=== PATIENT | male | born 1960 | race Two or more races ===

== ENCOUNTER 2019-08-27 07:05 | Day surgery (SDC) | payer MEDICAID ==
[~2019-08-27] VITALS: Ht 167.6 cm; Wt 59.9 kg
[2019-08-27] VITALS (8 sets, daily range): BP systolic 90–101; BP diastolic 50–60
[~2019-08-27 07:05] MED LIST: GABAPENTIN600 MG ORAL; SPIRONOLACTONE25 MG ORAL
--- NOTE | 2019-08-27 09:14 | Pre-Procedure Note/Attestation ---
Pre-Procedure Note/Attestation Complete Prior to Procedure Planned Procedure: not applicable Procedure Narrative: esophagogastroduodenoscopy and colonoscopy Indications for Procedure Pre-Operative Diagnosis: gastric CA screening colon Attestation I attest that I discussed the nature of the procedure; its benefits; risks and complications; and alternatives (and the risks and benefits of such alternatives ), prior to the procedure, with the patient (or the patient's legal quality assurance representative). I attest that, if there was a reasonable possibility of needing a blood transfusion, the patient (or the patient's legal quality assurance representative) was given the [facility] standardized written summary, pursuant to the [place] Blood Safety Act ([place] Health and Safety Code # 1645, as amended). I attest that I re-evaluated the patient just prior to the surgery and that there has been no change in the patient's H&P, except as documented below: Brayan Diallo MD Aug 27, 2019 09:14
--- NOTE | 2019-08-27 09:16 | Short Stay Surgery H&P ---
History of Present Illness History of Present Illness Chief Complaint gastric ca HPI Krunal Starr is a 59 year old male who was admitted on for Abdominal Pain, Hx Of Gastric Cancer Patient History PAST MEDICAL HISTORY: (1) Gastric cancer (2) Cirrhosis (3) BPH (benign prostatic hyperplasia) Medication History Scheduled Gabapentin* (Gabapentin*), 600 MG ORAL DAILY, (Reported) Spironolactone* (Aldactone*), 25 MG ORAL DAILY, (Reported) Review of Systems Cardiovascular: Reports: no symptoms Respiratory: Reports: no symptoms Skeletal: Reports: no symptoms Gastrointestinal: Reports: no symptoms Genitourinary: Reports: no symptoms Neurologic: Reports: no symptoms Physical Exam Vital Signs Last Vital Signs Date Time Temp Pulse Resp B/P (MAP) Pulse Ox O2 Delivery O2 Flow Rate FiO2 08/27/19 07:54 Room Air 08/27/19 07:50 98.3 58 18 101/58 98 Skin: normal HENT: normal Heart: normal Lungs: normal Abdomen: normal Extremities: normal Plan Plan of Care esophagogastroduodenoscopy and colonoscopy Attestation Are the patient's medical conditions optimized for surgery? Attestation Response: yes Brayan Diallo MD Aug 27, 2019 09:16
[2019-08-27] MEDS ORDERED: LR 1000ml ONE (09:30)
[2019-08-27] MEDS ORDERED: Lidocaine 1% MPF 10mg/ml 5ml ONE (09:30)
--- NOTE | 2019-08-27 09:48 | Endoscopy Procedure Note ---
Endoscopy Procedure Note General Indication for Procedure: screening colon, GERD Procedures Performed: EGD, colonoscopy Operative Findings/Diagnosis: gastritis, diverticulosis Specimen: yes Pt Tolerated Procedure Well: Yes Estimated Blood Loss: none Anesthesia Anesthesiologist: jai Anesthesia: MAC Inserted Devices Implant(s) used?: No Quality Quality of Bowel Preparation: Good Did scope reach the cecum?: Yes Was there any complications?: No GI Core Measures 50 yrs or older w/o bx or poly: No 10yrs. F/U recommended: Yes If not recommended, why?: Above average risk 18 years or older w/prev. colo: No Brayan Diallo MD Aug 27, 2019 09:48
--- NOTE | 2019-08-27 09:56 | Immediate Post-Op Evaluation ---
Immediate Post-Op Evalulation Immediate Post-Op Evalulation Procedure: EGD/Colonoscopy Date of Evaluation: Aug 27, 2019 Time of Evaluation: 09:55 IV Fluids: 500 Blood Pressure Systolic: 92 Blood Pressure Diastolic: 50 Pulse Rate: 50 Respiratory Rate: 14 O2 Sat by Pulse Oximetry: 100 Temperature (Fahrenheit): 97.5 Nausea: No Vomiting: No Patient Status: awake, reacts, patent Hydration Status: adequate Drug: none Deborah Manzano CRNA Aug 27, 2019 09:56
--- NOTE | 2019-08-27 09:58 | Anethesia Preoperative Eval ---
Anesthesia Pre-op PMH/ROS General Date of Evaluation: Aug 27, 2019 Time of Evaluation: 09:20 Anesthesiologist: coco ASA Score: ASA 2 Mallampati Score Class I : Soft palate, uvula, fauces, pillars visible Class II: Soft palate, uvula, fauces visible Class III: Soft palate, base of uvula visible Class IV: Only hard plate visible Mallampati Classification: Class II Surgeon: shaka Diagnosis: screening Surgical Procedure: EGD/Colonoscopy Anesthesia History: none Allergies: Coded Allergies: No Known Allergies (Unverified , 08/27/19) Medications: see eMAR Patient NPO?: Yes NPO Date: Aug 27, 2019 NPO Time: 00:01 Past Medical History Cardiovascular: Reports: HTN; Denies: CAD, MA, valve dz, arrhythmia, other Pulmonary: Denies: asthma, COPD, TIFFANI, other Gastrointestinal/Genitourinary: Reports: GERD, other - gastric ca; Denies: CRI, ESRD Neurologic/Psychiatric: Denies: dementia, CVA, depression/anxiety, TIA, other Endocrine: Denies: DM, hypothyroidism, steroids, other HEENT: Denies: cataract (L), cataract (R), glaucoma, NOORVIK (L), NOORVIK (R), other Hematology/Immune: Denies: anemia, DVT, bleeding disorder, other Musculoskeletal/Integumentary: Denies: OA, RA, DJD, DDD, edema, other PSxH Narrative: colonoscopy Anesthesia Pre-op Phys. Exam Physician Exam Last Vital Signs Date Time Temp Pulse Resp B/P (MAP) Pulse Ox O2 Delivery O2 Flow Rate FiO2 08/27/19 07:54 Room Air 08/27/19 07:50 98.3 58 18 101/58 98 Constitutional: NAD Neurologic: CN 2-12 intact Cardiovascular: RRR Respiratory: CTA Gastrointestinal: S/NT/ND Airway Exam Mallampati Classification 2 Mallampati Score: Class II MO: full ROM: full Dentures: no upper, no lower Anesthesia Pre-op A/P Studies Pre-op Studies: EKG - SR Risk Assessment & Plan Plan: mac Status Change Before Surgery: No Pre-Antibiotics Drug: none Deborah Manzano CRNA Aug 27, 2019 09:58
--- NOTE | 2019-08-27 10:30 | Procedure Note ---
DATE OF PROCEDURE: 08/27/2019 SURGEON: Brayan Diallo MD. REFERRING PHYSICIAN: Allen Gilmore MD. PROCEDURE: Upper endoscopy with biopsy and colonoscopy. ANESTHESIA: Per TACTICAL/MOBILE WATCH OFFICER, Deborah Tarrillion. INSTRUMENT: Olympus adult flexible upper endoscope and colonoscope. INDICATION: History of gastric cancer, screening colonoscopy evaluation. REASON FOR PROCEDURE: The procedure, risks, benefits, and possible consequences, including hemorrhage, aspiration, perforation and infection, and alternative treatments, were explained to the patient/legal guardian by Dr. Brayan Diallo and the patient/legal guardian understood and accepted these risks. PROCEDURE IN DETAIL: After informed consent was obtained and the patient was adequately sedated, Olympus upper endoscope was advanced from the mouth into the esophagus. GE junction was found to be about 38 centimeter from the incisors. Then, scope was advanced to the gastric pouch. The patient had partial gastrectomy with the gastric pouch there. There was some inflammation at the anastomosis in the gastric site, which was biopsied. No active bleeding at this time. No esophageal varices. At this time, the upper endoscope was retrieved and the patient was turned over for colonoscopy. First, rectal exam was performed, which was positive for internal hemorrhoids. Then, the scope was advanced from the rectum into the cecum documented by appendix orifice, ileocecal valve, and right upper quadrant palpation. Quality of prep was good. The patient has significant diverticulosis throughout the colon, but more prominent in the left compared to right. No active polyp was seen. No active ulceration was seen. Retroflexion of rectum showed evidence of internal hemorrhoids. SUMMARY OF FINDINGS: 1. Partial gastrectomy with some inflammation at the anastomosis on the gastric site, status post biopsy. 2. diverticulosis of the colon. 3. Internal hemorrhoids. RECOMMENDATIONS: Follow biopsy results and treat accordingly. I want to thank Dr. Allen Gilmore for this kind referral. Brayan Diallo M.D. DR: TANYA JOB#: [id number] CC: Allen Gilmore M.D.; Fax#: [phone]
--- NOTE | 2019-08-27 10:53 | 48 Hour Post Anesthesia Eval ---
Post Anesthesia Evaluation Procedure: EGD/Colonoscopy Date of Evaluation: Aug 27, 2019 Time of Evaluation: 10:53 Blood Pressure Systolic: 95 0: 50 Pulse Rate: 54 Respiratory Rate: 14 O2 Sat by Pulse Oximetry: 98 Airway: patent Nausea: No Vomiting: No Hydration Status: adequate Cardiopulmonary Status: stable Mental Status/LOC: patient returned to baseline Post-Anesthesia Complications: none Follow-up care needed: N/A Deborah Manzano CRNA Aug 27, 2019 10:53
== END 2019-08-27 11:10 | disposition home or self-care (01) ==
LOC: GAS 07:05
DX: Z12.11 Encounter for screening for malignant neoplasm of colon (principal); K74.60 Unspecified cirrhosis of liver; K21.9 Gastro-esophageal reflux disease without esophagitis; K57.90 Diverticulosis of intestine, part unspecified, without perforation or abscess without bleeding; K64.8 Other hemorrhoids; Z85.00 Personal history of malignant neoplasm of unspecified digestive organ; Z90.49 Acquired absence of other specified parts of digestive tract; K63.89 Other specified diseases of intestine
CPT/HCPCS: 43239; 45378; 93005; 94003; J2704; J7120; Z7512; 94150